=== PATIENT | female | born 1990 | race Caucasian/White ===

== ENCOUNTER 2024-06-10 14:34 | Emergency (ER) | payer BC, SELFPAY ==
[2024-06-10 14:35] VITALS: BP 141/95
--- NOTE | 2024-06-10 15:43 | ED.GENMED ---
History of Present Illness
<Reyna Pennington PA-C - Last Filed: 06/10/24 17:56>
General
Chief Complaint: Back Pain
Source: patient
Time Seen by Provider: 06/10/24 15:32
History of Present Illness
History of Present Illness:
33yo female currently 36w2d gestation presenting with her mother for evaluation of upper back pain. Patient was standing at the bank about 1.5 hours ago when she started to experience a pain in her right upper back. Pain feels like a gripping
sensation. The pain is worse with movement of her trunk and deep breathing. She immediately called her OB who told her to go to the ED for evaluation. Her pain has been constant and her pain is improved from symptom onset. She has not taken anything
OTC for her symptoms. She is otherwise asymptomatic and denies any abdominal pain, vaginal bleeding, LOF, dysuria. She reports increased movement since last night. She denies any complications during her and she follows with [facility].
Phy Exam
<Reyna Pennington PA-C - Last Filed: 06/10/24 17:56>
General Physical Exam
General Presentation: well appearing
General age: appears stated age
General Skin: warm and dry
General Habitus: normal
General Mental: alert
General Hydration: appears well hydrated
Cardiovascular Exam
Cardiovascular Exam: regular rate/rhythm and no murmur
Pulmonary Exam
Pulmonary Exam: lungs clear, no respiratory distress, no crackles and no wheezing
Gastrointestinal Exam
Gastrointestinal Exam: non tender, soft, non distended and other (Gravid abdomen. Soft, non-tender. )
Musculoskeletal Exam
Musculoskeletal Exam: other (No reproducible tenderness in back. Patient points to right paraspinal thoracic area for location of pain. No skin changes. )
Skin Exam
Skin Exam: normal color and warm/dry
Psychiatric Exam
Psychiatric Exam: normal mood/affect
Course
<Reyna Pennington PA-C - Last Filed: 06/10/24 17:56>
Orders/Labs/Results
Orders:
Orders
06/10/24 15:45
Heart Tones ONCE
Vital Signs
Initial and Last Documented VS:
Initial Vital Signs
Temp Pulse Resp BP Pulse Ox
98.9 F 66 16 141/95 98
06/10/24 14:35 06/10/24 14:35 06/10/24 14:35 06/10/24 14:35 06/10/24 14:35
Last Documented Vital Signs
Temp Pulse Resp BP Pulse Ox
98.9 F 77 18 120/76 97
06/10/24 14:35 06/10/24 16:15 06/10/24 16:15 06/10/24 16:00 06/10/24 16:15
<Ari Cleaning DO - Last Filed: 06/10/24 16:34>
Orders/Labs/Results
Orders:
Orders
06/10/24 15:45
Heart Tones ONCE
Vital Signs
Initial and Last Documented VS:
Initial Vital Signs
Temp Pulse Resp BP Pulse Ox
98.9 F 66 16 141/95 98
06/10/24 14:35 06/10/24 14:35 06/10/24 14:35 06/10/24 14:35 06/10/24 14:35
Last Documented Vital Signs
Temp Pulse Resp BP Pulse Ox
98.9 F 77 18 120/76 97
06/10/24 14:35 06/10/24 16:15 06/10/24 16:15 06/10/24 16:00 06/10/24 16:15
<Reyna Pennington PA-C - Last Filed: 06/10/24 17:56>
MDM/Problems Addressed
Differential Diagnosis Includes:
33yoF currently 36 weeks presenting for R upper back pain that started 1.5 hours ago [place] the [place]. Described as a gripping pain. Worse with movement and deep breathing. No abdominal or vaginal symptoms. She is afebrile and
hemodynamically stable. Oxygen saturation 98% on room air. Back is normal to inspection. No reproducible tenderness present. Suspect musculoskeletal cause of pain. Low clinical suspicion of PE or other lung pathology given normal heart rate and
oxygen saturation.
Bedside ultrasound performed by attending. FHR in the 150s. Patient stable for discharge. Supportive care discussed. Advised close f/u with OBGYN. Strict ED return precautions discussed. She expressed understanding and is agreeable to plan. Patient
discharged in stable condition.
<Reyna Pennington PA-C - Last Filed: 06/10/24 17:56>
*Critical Care Note
Total Time (30-74mins, 75-104mins- exclusive of procedures): Not Applicable
ED Attending Note
<Reyna Pennington PA-C - Last Filed: 06/10/24 17:56>
-
Portions of this chart may have been created with voice recognition software.� Occasional wrong word or��sound alike� substitutions may have occurred due to the inherent limitations of voice recognition software.
<Ari Cleaning, - Last Filed: 06/10/24 16:34>
ED Attending Note
Patient seen and examined by attending physician: Yes
I performed a history and physical exam of patient and discussed management with resident, I reviewed resident's note and agree with documented findings and plan of care.: Yes
ED Attending Note:
I reviewed and agree with history and treatment plan by Reyna Pennington. My exam revealed 33-year-old female with tenderness about T8-9 paraspinal. heart tones seen by ultrasound 1 40-1 50. Do not suspect PE. Patient stable for discharge.
Discharge Plan
Departure
Patient Disposition: Home (Routine Discharge)
Date of Disposition: 06/10/24
Time of Disposition: 16:24
Patient with high blood pressure during this ER visit?: No
Condition: Good
Discharge Problem:
Acute mid back pain, related condition in third trimester
Instructions: Upper Back Pain (DC)
Prescriptions:
No Action
No Current Medications
0
Referrals:
UNKNOWN - PT DOES,NOT KNOW [Family Provider] -
Interventions
Interventions:
*Risk Screen - Suicide Last Done: 06/10/24 15:46
*General Assessment Last Done: 06/10/24 14:35
*Neglect/Abuse Screening Last Done: 06/10/24 15:46
ED- Fall Risk Assessment Last Done: 06/10/24 15:46
*ED COVID-19 Vaccine History Last Done: 06/10/24 14:35
*Nursing Disposition Last Done: 06/10/24 16:32
ED-Musculoskeletal Assessment Last Done: 06/10/24 15:46
Discharge Date and Time
Discharge Date/Time: 06/10/24 16:36
Print Language: SLOVAK
[2024-06-10 15:46] VITALS: BMI 28.8
[2024-06-10 15:50] VITALS: BP 122/87
[2024-06-10 16:00] VITALS: BP 120/76
== END 2024-06-10 16:36 | disposition home or self-care (01) ==
LOC: EMR 14:34
PROVIDERS: EMERGENCY PHYSICIAN Emergency Medicine
DX: O26.893 Other specified pregnancy related conditions, third trimester (principal); M54.6 Pain in thoracic spine; Z3A.36 36 weeks gestation of pregnancy
CPT/HCPCS: 99283